=== PATIENT | female | born 1955 | race African-American/Black ===

== ENCOUNTER 2021-06-15 02:57 | Emergency (ER) | payer OTHER ==
[~2021-06-15] VITALS: Ht 162.6 cm; Wt 85.9 kg
[~2021-06-15 02:57] MED LIST: ESTR0.45 PO; LEVO75TA5 PO
[2021-06-15] MEDS ORDERED: PROCHLORPERAZINE 10 MG/2 ML VIAL. IV ONE (03:30)
[2021-06-15] MEDS ORDERED: diphenhydrAMINE 50 MG/ML VIAL IVP ONE (03:30)
--- NOTE | 2021-06-15 03:45 | PHYS DOC ---
Past History Past Medical History: Diabetes, Hypertension, Hypothyroid Past Surgical History: Hysterectomy, Other Additional Past Surgical Histo: hernia repair Smoking: Non-smoker Alcohol Use: None Drug Use: None Adult General Chief Complaint Chief Complaint: HEADACHE HPI HPI Patient is a 65 year old female who presents with headache mainly located on the left parietal and temporal area since at least last 4 to 5 days. The pain got worse tonight with slight nausea but no vomiting. She denies any focal weakness or numbness. She further denies any visual disturbance, neck pain, fever, cough or ear drinking. There is no pain to the right side. She has not had similar headache previously. Patient has had negative Covid PCR test x2 in the last few days. She does have some concern for possible flu. Review of Systems Review of Systems Constitutional: Denies fever or chills Eyes: Denies change in visual acuity, redness, or eye pain HENT: She has some nasal congestion but not sore throat Respiratory: Denies cough or shortness of breath [] Cardiovascular: No additional information not addressed in HPI [] GI: Denies abdominal pain, nausea, vomiting, bloody stools or diarrhea [] : Denies dysuria or hematuria [] Musculoskeletal: Denies back pain or joint pain [] Integument: Denies rash or skin lesions [] Neurologic: Headache for 5 days but focal weakness or sensory changes [] Endocrine: Denies polyuria or polydipsia [] All other systems were reviewed and found to be within normal limits, except as documented in this note. Current Medications Current Medications Current Medications Medications (Trade) Dose Ordered Sig/Manuel Start Time Stop Time Status Last Admin Dose Admin Diphenhydramine HCl (Benadryl) 25 mg 1X ONCE 06/15/21 03:30 06/15/21 03:31 DC Prochlorperazine Edisylate (Compazine) 10 mg 1X ONCE 06/15/21 03:30 06/15/21 03:31 DC Allergies Allergies Allergies Coded Allergies Type Severity Reaction Last Updated Verified Sulfa (Sulfonamide Antibiotics) Allergy 12/03/13 Yes shellfish derived Allergy 12/03/13 Yes Physical Exam Physical Exam Constitutional: Well developed, well nourished, no acute distress, non-toxic appearance. HENT: Normocephalic, atraumatic, bilateral external ears normal, oropharynx moist, no oral exudates, nose normal. Eyes: PERRLA, EOMI, conjunctiva normal, no discharge. Neck: Normal range of motion, no tenderness, supple, no stridor. Cardiovascular:Heart rate regular rhythm, no murmur Lungs & Thorax: Bilateral breath sounds clear to auscultation Abdomen: Bowel sounds normal, soft, no tenderness, no masses, no pulsatile masses. Skin: Warm, dry, no erythema, no rash. Back: No tenderness, no CVA tenderness. Extremities: No tenderness, no cyanosis, no clubbing, ROM intact, no edema. Neurologic: Alert and oriented X 3, normal motor function, normal sensory function, no focal deficits noted. Psychologic: Affect normal, judgement normal, mood normal. Current Patient Data Vital Signs Vital Signs Date Time Temp Pulse Resp B/P (MAP) Pulse Ox O2 Delivery O2 Flow Rate FiO2 06/15/21 03:07 98.0 63 18 193/92 (125) 98 Room Air Lab Results Laboratory Tests Test 06/15/21 03:27 06/15/21 03:47 White Blood Count 4.2 x10^3/uL Red Blood Count 4.09 x10^6/uL Hemoglobin 12.2 g/dL Hematocrit 38.1 % Mean Corpuscular Volume 93 fL Mean Corpuscular Hemoglobin 30 pg Mean Corpuscular Hemoglobin Concent 32 g/dL Red Cell Distribution Width 13.6 % Platelet Count 170 x10^3/uL Neutrophils (%) (Auto) 26 % Lymphocytes (%) (Auto) 64 % Monocytes (%) (Auto) 8 % Eosinophils (%) (Auto) 1 % Basophils (%) (Auto) 1 % Neutrophils # (Auto) 1.1 x10^3uL Lymphocytes # (Auto) 2.6 x10^3/uL Monocytes # (Auto) 0.3 x10^3/uL Eosinophils # (Auto) 0.1 x10^3/uL Basophils # (Auto) 0.1 x10^3/uL Sodium Level 142 mmol/L Potassium Level 3.6 mmol/L Chloride Level 107 mmol/L Carbon Dioxide Level 28 mmol/L Anion Gap 7 Blood Urea Nitrogen 8 mg/dL Creatinine 0.7 mg/dL Estimated GFR (Cockcroft-Gault) 102.3 Glucose Level 101 mg/dL Calcium Level 9.2 mg/dL Influenza Type A (Rapid) Negative Influenza Type B (Rapid) Negative Current Medications Medications (Trade) Dose Ordered Sig/Manuel Route PRN Reason Start Time Stop Time Status Last Admin Dose Admin Prochlorperazine Edisylate (Compazine) 10 mg 1X ONCE IV 06/15/21 03:30 06/15/21 03:31 DC 06/15/21 03:37 Diphenhydramine HCl (Benadryl) 25 mg 1X ONCE IVP 06/15/21 03:30 06/15/21 03:31 DC 06/15/21 03:38 EKG EKG [] Radiology/Procedures Radiology/Procedures She had CT scan of the head done which is interpreted by radiologist shows no acute abnormalities. Heart Score C/O Chest Pain: No Risk Factors: Risk Factors: DM, Current or recent (<one month) smoker, HTN, HLP, family history of CAD, obesity. Risk Scores: Risk Factors: DM, Current or recent (<one month) smoker, HTN, HLP, family history of CAD, obesity. Course & Med Decision Making Course & Med Decision Making Pertinent Labs and Imaging studies reviewed. (See chart for details) Patient had presented with complaint of headache mainly onto the left side. She was afebrile and without any neck pain. The CT scan as above is normal. She was given Compazine and Benadryl with near complete resolution of her headache. Her laboratory studies including CBC and CMP were unremarkable. I have informed her that she needs to be evaluated for potential migraine headache. She can use migraine [id number] medication as a starter and then see her physician in the next 3 to 5 days. She understands the follow-up plan and is requesting discharge home. I reexamined patient at 5 AM and patient is symptom-free to be discharged home. Dragon Disclaimer Dragon Disclaimer This electronic medical record was generated, in whole or in part, using a voice recognition dictation system. Departure Departure: Impression: Primary Impression: Headache, unspecified Disposition: HOME / SELF CARE / HOMELESS Condition: IMPROVED Referrals: PARAMJIT LARA (PCP) Please see your doctor in the next 2 to 3 days. If you get recurrent headache or his situation becomes worse, come back to the emergency department. Patient Instructions: General Headache Without Cause ALYSON REYNA MD Jun 15, 2021 03:45
--- NOTE | 2021-06-15 03:46 | RAD ---
CT head without contrast dated 06/15/2021 3:43 AM Comparison: None CLINICAL INDICATION: Headache TECHNIQUE: Contiguous axial imaging of the head was performed from skull base to vertex. One or more of the following individualized dose reduction techniques were utilized for this examinat ion: 1. Automated exposure control 2. Adjustment of the mA and/or kV according to patient size 3. Use of iterative reconstruction technique. FINDINGS: Ventricles and sulci are within normal limits for age. No midline shift or mass effect. Brain parench yma is of normal attenuation. No hemorrhage or extra-axial collection. Posterior fossa and brainstem unremarkable. Visualized paranasal sinuses and mastoid air cells are clear. No apparent calvarial abnormality. IMPRESSION: No evidence of acute intracranial abnormality. Electronically signed by: Hay Caraballo MD (06/15/2021 3:44 AM) JOHN
[2021-06-15 03:55] LABS: BASO # 0.1 x10^3/uL (0.0-0.2); BASO % 1 % (0-3); EOS # 0.1 x10^3/uL (0.0-0.7); EOS % 1 % (0-3); HEMATOCRIT 38.1 % (36.0-47.0); HEMOGLOBIN 12.2 g/dL (12.0-15.5); LYMPH # 2.6 x10^3/uL (1.0-4.8); LYMPH % 64 % (24-48); MEAN CORPUSCULAR HEMOGLOBIN 30 pg (25-35); MEAN CORPUSCULAR HGB CONC 32 g/dL (31-37); MEAN CORPUSCULAR VOLUME 93 fL (79-100); MONO # 0.3 x10^3/uL (0.0-1.1); MONO % 8 % (0-9); NEUT # 1.1 x10^3uL (1.8-7.7); NEUT % 26 % (31-73); PLATELET COUNT 170 x10^3/uL (140-400); RED BLOOD COUNT 4.09 x10^6/uL (3.50-5.40); RED CELL DISTRIBUTION WIDTH 13.6 % (11.5-14.5); WHITE BLOOD COUNT 4.2 x10^3/uL (4.0-11.0)
[2021-06-15 04:07] LABS: CALCIUM 9.2 mg/dL (8.5-10.1); CREATININE 0.7 mg/dL (0.6-1.0); GFR 102.3; POTASSIUM 3.6 mmol/L (3.5-5.1)
[2021-06-15 04:26] LABS: INFLUENZA A PATIENT NEGATIVE (NEGATIVE); INFLUENZA B PATIENT NEGATIVE (NEGATIVE)
[2021-06-15 05:16] VITALS: BP 157/74
== END 2021-06-15 05:24 | disposition home or self-care (01) ==
LOC: ER 02:57
DX: R51.9 Headache, unspecified (principal); R11.0 Nausea; R53.1 Weakness; E11.9 Type 2 diabetes mellitus without complications; I10 Essential (primary) hypertension; E03.9 Hypothyroidism, unspecified; Z88.2 Allergy status to sulfonamides; Z91.013 Allergy to seafood
CPT/HCPCS: 36415; 70450; 80048; 85025; 87804; 96374; 96375; 99284; J0780; J1200

== ENCOUNTER 2021-08-24 23:50 | Emergency (ER) | payer OTHER ==
[~2021-08-24] VITALS: Ht 162.6 cm; Wt 85.9 kg
[2021-08-25 00:04] VITALS: BP 159/69
[2021-08-25] MEDS ORDERED: CYCLOBENZAPRINE 10MG 4TABLET STARTPACK PO ONE (00:15)
[2021-08-25] MEDS ORDERED: KETOROLAC 60 MG/2 ML VIAL. IM ONE (00:15)
[2021-08-25] MEDS ORDERED: CYCL5TAB PO (00:15)
--- NOTE | 2021-08-25 00:15 | PHYS DOC ---
Past History Past Medical History: Diabetes, Hypertension, Hypothyroid Past Surgical History: Hysterectomy, Other Additional Past Surgical Histo: hernia repair Smoking: Non-smoker Alcohol Use: None Drug Use: None General Adult EDM: Chief Complaint: SHOULDER INJURY HPI: HPI: Patient is a 66 year old female who presents with right-sided muscle spasm of the neck. Patient states that she has this problem frequently and she works in housekeeping in a hotel. Patient rates her pain 9/10 nonradiating. She denies headache, paresthesias, upper extremity pain or weakness. Patient has no other complaints at this time. Review of Systems: Review of Systems: ROS negative except as mentioned in HPI. Allergies: Allergies: Allergies Coded Allergies Type Severity Reaction Last Updated Verified Sulfa (Sulfonamide Antibiotics) Allergy Unknown 08/25/21 Yes shellfish derived Allergy Unknown 08/25/21 Yes Physical Exam: PE: Constitutional: Well developed, well nourished, no acute distress, non-toxic appearance. Neck: Range of motion limited secondary to pain and spasm, no step-offs, no midline tenderness, muscle spasm and tenderness appreciated R>L. Cardiovascular: Heart rate regular rhythm, no murmur. Lungs & Thorax: Bilateral breath sounds clear to auscultation. Skin: Warm, dry, no erythema, no rash, no abrasion, no laceration. Back: No step-offs, no tenderness. Extremities: No tenderness, no cyanosis, no clubbing, ROM intact, no edema, neurovascular intact. Neurologic: Alert and oriented x4, motor function grossly intact including 5/5 hip hop dance instructor strength bilaterally, sensory function grossly intact, no focal deficits noted. Current Patient Data: Vital Signs: Vital Signs Date Time Temp Pulse Resp B/P (MAP) Pulse Ox O2 Delivery O2 Flow Rate FiO2 08/25/21 00:04 98.0 75 18 159/69 (99) 99 Heart Score: C/O Chest Pain: No Course & Med Decision Making: Course & Med Decision Making Pertinent Labs and Imaging studies reviewed. (See chart for details) Patient presents with muscle spasm, which she has experienced in the past. At this time, she has no neurological symptoms. Patient drove herself to the emergency department today. She will be treated with Toradol here in the department and provided with a starter pack of muscle relaxer. Patient understands and is agreeable to discharge plan. Dragon Disclaimer: Dragon Disclaimer: This electronic medical record was generated, in whole or in part, using a voice recognition dictation system. Departure Departure: Impression: Primary Impression: Muscle spasms of neck Disposition: HOME / SELF CARE / HOMELESS Condition: STABLE Referrals: PARAMJIT LARA (PCP) Patient Instructions: Muscle Strain, [id number], Tension Headache, [id number] Additional Instructions: Please do not take the muscle relaxer provided to you today until you get home, as it is unsafe to drive when taking this medication. Return to the emergency department if your symptoms do not improve or you develop new symptoms, including weakness or numbness/tingling. Scripts Cyclobenzaprine Hcl (CYCLOBENZAPRINE HCL) 5 Mg Tablet 1 TAB PO PRN TID PRN for MUSCLE SPASMS, #20 TAB Start by taking 1 tablet by mouth as needed 3 times per day for muscle spasm. If 1 tablet is insufficient, you may take 2 tablets at a time. Do not exceed 6 tablets in 1 day. Prov: REINALDO GILL 08/25/21 REINALDO GILL Aug 25, 2021 00:15
== END 2021-08-25 00:26 | disposition home or self-care (01) ==
LOC: ER 23:50
DX: M62.838 Other muscle spasm (principal); M54.2 Cervicalgia; E11.9 Type 2 diabetes mellitus without complications; I10 Essential (primary) hypertension; E03.9 Hypothyroidism, unspecified; Z88.2 Allergy status to sulfonamides; Z91.013 Allergy to seafood
CPT/HCPCS: 96372; 99283; J1885